=== PATIENT | male | born 1990 | race Caucasian/White ===

== ENCOUNTER 2017-07-04 14:53 | Emergency (ER) | payer OTHER ==
[2017-07-04] MEDS ORDERED: ONDANSETRON 4 MG/2 ML VIAL IVP STA (15:30)
[2017-07-04] MEDS ORDERED: SODIUM CHLORIDE 0.9% 1,000 ML IV STA ×2 (15:30→16:48)
--- NOTE | 2017-07-04 15:56 | ED ---
Nausea/Vomiting/Diarrhea HPI - General Chief complaint: Nausea/Vomiting/Diarrhea Stated complaint: Abd Pain Time Seen by Provider: 07/04/17 15:22 Source: patient, RN notes reviewed Mode of arrival: ambulatory Limitations: no limitations - History of Present Illness Initial comments: This is a 26-year-old male who presents to the emergency department with chief complaint of nausea and vomiting. Patient states that he has vomited "at least 100 times" since this morning. He states that at first he was vomiting up food but then all he had left was stomach acid. Patient states that he has also been having diarrhea. He complains of generalized abdominal cramping and myalgias. Patient states that he drank liquor last night. He denies any sick contacts. He states he has not been able to keep food or fluids down since last night. He states he has been trying to drink Powerade but then vomits it up. He complains of feeling warm and then cold. Denies fever, chest pain, shortness of breath, constipation, dysuria or hematuria, numbness or tingling, headache or vision changes. - Related Data Home Medications Medication Instructions Recorded Confirmed No Known Home Medications [No 05/20/15 07/04/17 Known Home Medications] Allergies Allergy/AdvReac Type Severity Reaction Status Date / Time No Known Allergies Allergy Verified 07/04/17 15:12 Review of Systems ROS Statement: Those systems with pertinent positive or pertinent negative responses have been documented in the HPI. ROS Other: All systems not noted in ROS Statement are negative. Past Medical History Past Medical History: No Reported History History of Any Multi-Drug Resistant Organisms: None Reported Past Surgical History: No Surgical Hx Reported Past Psychological History: No Psychological Hx Reported Smoking Status: Never smoker Past Alcohol Use History: None Reported Past Drug Use History: None Reported General Exam - General Exam Comments Initial Comments: General: Awake and alert, well-developed; in no apparent distress. Unpleasant but cooperative. HEENT: Head atraumatic, normocephalic. Pupils are equal, round and reactive to light. Extraocular movements intact. Oropharynx moist without erythema or exudate. Neck: Supple. Normal ROM. Cardiovascular: Regular rate and rhythm. No murmurs, rubs or gallops. Chest symmetrical. Respiratory: Lungs clear to auscultation bilaterally. No wheezes, rales or rhonchi. Normal respiratory effort with no use of accessory muscles. Abdomen: Soft, non-tender, non-distended. No rigidity, rebound or guarding. Normal bowel sounds in all 4 quadrants. Skin: Lawson, warm and dry without rashes or lesions. Neurological: Alert and oriented x3. CN II-XII grossly intact. Speech is fluent and answers are appropriate. No focal neuro deficits. Psychiatric: Normal mood and affect. No overt signs of depression or anxiety noted. Limitations: no limitations Course Vital Signs 07/04/17 15:02 Temperature 98.8 F Pulse Rate 105 H Respiratory 18 Rate Blood Pressure 119/81 O2 Sat by Pulse 99 Oximetry Medical Decision Making - Medical Decision Making This is a 26-year-old male who presents to the emergency department with chief complaint of nausea and vomiting since this morning. Patient received IV fluids and Zofran while in the emergency department. On reevaluation patient stated that he felt significantly improved and was able to keep down oral water and juice. He denies any abdominal pain. Abdomen is non-tender on palpation. X-ray of abdomen revealed no acute abnormalities. CBC revealed a white count of 15.1. UA reveals trace proteins, trace ketones and low count of leukocyte esterase. Influenza was negative. Patient will be discharged home with starter pack for Zofran. Encouraged fluid intake. He is in agreement and voices understanding. All questions were answered. - Lab Data Result diagrams: 07/04/17 15:43 07/04/17 15:43 Lab Results 07/04/17 07/04/17 07/04/17 Range/Units 15:43 15:43 15:43 WBC 15.1 H (3.8-10.6) k/uL RBC 6.31 H (4.30-5.90) m/uL Hgb 18.5 H (13.0-17.5) gm/dL Hct 54.9 H (39.0-53.0) % MCV 87.1 (80.0-100.0) fL MCH 29.4 (25.0-35.0) pg MCHC 33.7 (31.0-37.0) g/dL RDW 12.7 (11.5-15.5) % Plt Count 259 (150-450) k/uL Sodium 142 (137-145) mmol/L Potassium 4.8 (3.5-5.1) mmol/L Chloride 105 (98-107) mmol/L Carbon Dioxide 25 (22-30) mmol/L Anion Gap 12 mmol/L BUN 18 (9-20) mg/dL Creatinine 1.00 (0.66-1.25) mg/dL Est GFR (MDRD) Af Amer >60 (>60 ml/min/1.73 sqM) Est GFR (MDRD) Non-Af >60 (>60 ml/min/1.73 sqM) Glucose 111 H (74-99) mg/dL Calcium 10.4 H (8.4-10.2) mg/dL Total Bilirubin 1.2 (0.2-1.3) mg/dL AST 28 (17-59) U/L ALT 37 (21-72) U/L Alkaline Phosphatase 60 (38-126) U/L Total Protein 8.1 (6.3-8.2) g/dL Albumin 4.8 (3.5-5.0) g/dL Amylase 78 (30-110) U/L Lipase 52 (23-300) U/L Influenza Type A RNA Not Detected (Not Detectd) Influenza Type B (PCR) Not Detected (Not Detectd) - Radiology Data Radiology results: report reviewed X-ray KUB findings: There is a normal bowel gas pattern. No free air is evident. No suspicious differential air-fluid levels are present. Psoas margins are normal. No organomegaly is present. Impression: 1. Unremarkable abdomen. Disposition Clinical Impression: Nausea and vomiting Disposition: HOME SELF-CARE Condition: Good Instructions: Acute Nausea and Vomiting (ED), Ondansetron (By mouth) Additional Instructions: Please take medications as prescribed. Please follow up with primary care provider within 1-2 days. Return to emergency department if symptoms should worsen or any concerns arise. Referrals: None,Stated [Primary Care Provider] - 1-2 days Time of Disposition: 18:04
[2017-07-04 16:14] LABS: ALT 37 U/L (21-72); AST 28 U/L (17-59); Alkaline Phosphatase 60 U/L (38-126); Amylase 78 U/L (30-110); Anion Gap 12 mmol/L; Blood Urea Nitrogen 18 mg/dL (9-20); Calcium 10.4 mg/dL (8.4-10.2); Carbon Dioxide 25 mmol/L (22-30); Chloride 105 mmol/L (98-107); Glucose 111 mg/dL (74-99); Non-African American GFR(MDRD) >60 (>60 ml/min/1.73 sqM); Potassium 4.8 mmol/L (3.5-5.1); Sodium 142 mmol/L (137-145); Total Bilirubin 1.2 mg/dL (0.2-1.3); Total Protein 8.1 g/dL (6.3-8.2)
[2017-07-04 16:16] LABS: Basophils % (A) 0 %; CH 30.3; CHCM 34.9; Eosinophils # (A) 0.1 k/uL (0-0.7); Eosinophils % (A) 0 %; HCT 54.9 % (39.0-53.0); HDW 2.47; HGB 18.5 gm/dL (13.0-17.5); Immature Gran Flag Slight; Luc # (Auto) 0.07; Luc % (Auto) 1; Lymphocytes # (A) 0.3 k/uL (1.0-4.8); Lymphocytes % (A) 2 %; MCH 29.4 pg (25.0-35.0); MCHC 33.7 g/dL (31.0-37.0); MCV 87.1 fL (80.0-100.0); Mean Platelet Volume 6.5; Monocytes # (A) 0.4 k/uL (0-1.0); Monocytes % (A) 3 %; Neutrophils # (A) 14.2 k/uL (1.3-7.7); Neutrophils % (A) 94 %; RBC 6.31 m/uL (4.30-5.90); RDW 12.7 % (11.5-15.5); WBC 15.1 k/uL (3.8-10.6); WBC (Perox) 14.15
--- NOTE | 2017-07-04 16:33 | XR ---
EXAMINATION TYPE: XR KUB DATE OF EXAM: 07/04/2017 COMPARISON: NONE INDICATION: Pain TECHNIQUE: Single view abdomen upright FINDINGS: There is a normal bowel gas pattern. No free air is evident. No suspicious differential air-fluid lev els are present. Psoas margins are normal. No organomegaly is present. IMPRESSION: 1. Unremarkable Abdomen
[2017-07-04 17:07] LABS: Manual Review Performed
[2017-07-04 17:11] LABS: Amorphous Sediment,Urine Rare /hpf; Appearance,Urine Clear (Clear); Bilirubin,Urine Negative (Negative); Glucose,Urine (UA) Negative (Negative); Ketones,Urine Trace (Negative); Leukocyte Esterase,Urine Trace (Negative); Mucus,Urine Few /hpf; Nitrite,Urine Negative (Negative); PH, Urine 5.5 (5.0-8.0); Particle Count 5068; Protein,Urine Trace (Negative); Specific Gravity,Urine 1.024 (1.001-1.035); UA Billing (MACRO vs. MICRO) MICRO; Urobilinogen,Urine <2.0 mg/dL (<2.0); WBC,Urine <1 /hpf (0-5)
[2017-07-04 17:26] VITALS: TEMP 98.4
[2017-07-04] MEDS ORDERED: ONDANSETRON 4 MG ODT STARTER PACK 2 TAB BTL PO STA (18:04)
[2017-07-04 18:32] VITALS: BP 144/63; PULSE 85; RESP 18
== END 2017-07-04 18:30 | disposition home or self-care (01) ==
LOC: EC 14:53
DX: R10.84 Generalized abdominal pain (principal); R11.2 Nausea with vomiting, unspecified; R19.7 Diarrhea, unspecified; M79.1 Myalgia
CPT/HCPCS: 36415; 80053; 82150; 83690; 85025; 81001; 87502; 74000; 99284; 96374; 96361 ×2; J2405; S0119